=== PATIENT | female | born 1975 | race Caucasian/White ===

== ENCOUNTER 2017-09-16 21:32 | Emergency (ER) | payer SELFPAY ==
[2017-09-16 21:33] VITALS: BP 143/92; PULSE 97; RESP 20; TEMP 36.1; O2SAT 100; BMI 40.0
--- NOTE | 2017-09-16 21:57 | ED.VISSUMM ---
- ER Visit Summary Date of Service: 09/16/17 Chief Complaint: Back pain History of Present Illness: The patient is a 42 F past medical history of hypertension and fibromyalgia. Patient states that she has had back pain along her spine and musculature for the last week. Worse the last few days. No numbness or weakness in her lower extremities. No prior back surgery. Physical Examination: Well-appearing middle-age female vital signs stable afebrile she does not look septic or toxic. She is in no acute distress. HEENT exam unremarkable. Neck nontender no lymphadenopathy. Lungs clear to auscultation bilaterally. Heart regular rate and rhythm no murmur. Abdomen soft and nontender. Normal bowel sounds no peritoneal signs. No right upper or right lower quadrant tenderness. No pulsatile mass. Extremities moves all 4. Neurovascular intact. 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 Bilaterally. Dorsi plantar flexion intact bilaterally. No cauda equina or saddle anesthesia. Normal medial thigh sensation. Negative straight leg raise bilaterally. Dorsi plantar flexion intact. Back exam she has para thoracic and lumbar soft tissue tenderness consistent with myofascial spasm. There is no redness or warmth no signs of trauma. No bony deformity. Neurologic exam normal. Test Results: None Emergency Department Course and Treatment: Patient's exam and history is consistent with back spasms. She will be given 1 p.o. Valium to take at home and a prescription for 10 days. Otherwise shower warm bath. Motrin for pain and inflammation. Treatment Plan: [] Disposition: Discharge Impression: Acute back pain secondary to myofascial spasm This note was generated with [employer] dictation software. It may contain incorrect words, spelling, and punctuation that were not noted in review of the chart prior to signing ED Disposition - Plan for ED Patient: Chief Complaint: Back Referrals: Aaron Marte Jr., MD [Primary Care Provider] -
--- NOTE | 2017-09-16 22:00 | ED.DCSUM_ITS ---
- ER Visit Summary Date of Service: 09/16/17 Chief Complaint: Back pain History of Present Illness: The patient is a 42 F past medical history of hypertension and fibromyalgia. Patient states that she has had back pain along her spine and musculature for the last week. Worse the last few days. No numbness or weakness in her lower extremities. No prior back surgery. Physical Examination: Well-appearing middle-age female vital signs stable afebrile she does not look septic or toxic. She is in no acute distress. HEENT exam unremarkable. Neck nontender no lymphadenopathy. Lungs clear to auscultation bilaterally. Heart regular rate and rhythm no murmur. Abdomen soft and nontender. Normal bowel sounds no peritoneal signs. No right upper or right lower quadrant tenderness. No pulsatile mass. Extremities moves all 4. Neurovascular intact. 5 out of 5 delicatessen department manager strength. Bilaterally. Dorsi plantar flexion intact bilaterally. No cauda equina or saddle anesthesia. Normal medial thigh sensation. Negative straight leg raise bilaterally. Dorsi plantar flexion intact. Back exam she has para thoracic and lumbar soft tissue tenderness consistent with myofascial spasm. There is no redness or warmth no signs of trauma. No bony deformity. Neurologic exam normal. Test Results: None Emergency Department Course and Treatment: Patient's exam and history is consistent with back spasms. She will be given 1 p.o. Valium to take at home and a prescription for 10 days. Otherwise shower warm bath. Motrin for pain and inflammation. Treatment Plan: [] Disposition: Discharge Impression: Acute back pain secondary to myofascial spasm This note was generated with [employer] dictation software. It may contain incorrect words, spelling, and punctuation that were not noted in review of the chart prior to signing ED Disposition - Plan for ED Patient: Chief Complaint: Back Referrals: Aaron Marte Jr., MD [Primary Care Provider] -
--- NOTE | 2017-09-16 22:00 | ED.DEP ---
ED Disposition - Plan for ED Patient: Disposition: Home or Assisted Living Chief Complaint: Back Instructions: ED Spasm Back No Trauma Prescriptions: Diazepam [Valium] 10 mg PO TID PRN PRN #15 tab PRN Reason: Pain Referrals: Aaron Marte Jr., MD [Primary Care Provider] - 1 Week if not improving Additional Instructions: Motrin for pain and inflammation. Volume for back muscle spasms. Do not drive or drink while using the Valium. Hot shower, warm bath and massage to relax the muscles in your back. Call follow-up your doctor if not improving.
[2017-09-16 22:17] VITALS: BP 136/109; PULSE 76; RESP 19
[2017-09-16] MEDS: diazePAM 5 MG Tablet 10 MG PO (22:24)
== END 2017-09-16 22:25 | disposition home or self-care (01) ==
PROVIDERS: Emergency Provider Emergency Medicine; Family Provider Internal Medicine; PCP Internal Medicine
DX: M62.830 Muscle spasm of back (principal); I10 Essential (primary) hypertension; M79.7 Fibromyalgia; Z79.899 Other long term (current) drug therapy; Z72.0 Tobacco use
CPT/HCPCS: 99284

== ENCOUNTER → 2021-03-18 16:33 | Outpatient (CLI) | payer MEDICAID, SELFPAY ==
--- NOTE | 2021-03-18 16:40 | RAD_ITS ---
STUDY: X-RAY CHEST REASON FOR EXAM: Female, 45 years old. COUGH, SOB TECHNIQUE: Frontal and lateral views of the chest COMPARISON: None. FINDINGS: The lungs are clear and expanded. There is no demonstrated pleural abnormality. Normal size heart. Normal mediastinum and conchis. Normal visualized pulmonary arteries. Normal visualized aortic arch and descending thoracic aorta. Normal visualized thoracic spine. Normal visualized ribs, clavicles, and shoulders. There is no demonstrated abnormality of the visualized soft tissue structures of the upper abdomen. RAD/Chest PA and Lateral IMPRESSION: Normal x-ray examination of the chest. Electronically Signed: Pavel Collier MD at 17:03 EST Tel , Service support ,
[2021-03-18 17:11] LABS: Hematocrit 42.9 % (37-47); Hemoglobin 14.7 g/dL (12.0-15.0); Mean Corp Hgb Conc 34.3 g/dL (32-36); Mean Corpuscular Hgb 33.1 pg (27.0-32.0); Mean Corpuscular Volume 96.6 fL (81-99); Mean Platelet Vol. 10.6 fl (6.2-12.0); Platelet Count 206 K/mm3 (150-450); RBC Distribution Width CV 13.2 % (11.6-14.6); RBC Distribution Width SD 47.3 fl (35.1-43.9); Red Blood Count 4.44 M/mm3 (4.2-5.4); White Blood Count 5.4 K/mm3 (4.4-11.0)
[2021-03-18 17:35] LABS: D-Dimer Quantitative (DVT/PE) 0.33 FEU/ug/m (0.27-0.49)
[2021-03-18 18:13] LABS: ALB/GLOB Ratio 0.8 RATIO (0.9-2.4); AST(SGOT) 15 U/L (15-37); Alanine Aminotransfer ALT/SGPT 22 U/L (13-56); Albumin, Serum 3.3 g/dL (3.2-5.0); Alkaline Phosphatase 81 U/L (45-117); Anion Gap 3 (5-15); BUN 10 mg/dL (7-18); BUN/Creat Ratio 11.2 RATIO (10-20); CRP 4.37 mg/L (0.0-3.0); Calcium,Total 8.6 mg/dL (8.5-10.1); Chloride 116 mmol/L (98-107); Creatinine, Serum 0.89 mg/dL (0.55-1.02); EST Glomerular Filtration Rate 73 mL/min (>60); Est Glom Filt Rate - Afr Amer 89 mL/min (>60); Globulin 3.9 g/dL (2.2-4.2); Glucose 103 mg/dL (74-106); Potassium 3.4 mmol/L (3.5-5.1); Protein, Total 7.2 g/dL (6.4-8.2); Sodium Level 142 mmol/L (136-145)
== END ==
PROVIDERS: PCP Nurse Practitioner Family; Visit Provider Nurse Practitioner Family
DX: U07.1 COVID-19 (principal); R05.9 Cough, unspecified; R06.02 Shortness of breath
CPT/HCPCS: 36415; 71046; 80053; 85027; 85379; 86140

== ENCOUNTER 2021-08-19 18:15 | Observation (INO) | payer MEDICAID, SELFPAY ==
[2021-08-19] VITALS (8 sets, daily range): BP systolic 111–136; BP diastolic 77–92; PULSE 65–81; RESP 16–18; TEMP 36.3–36.9; O2SAT 98–100; BMI 33.0; BMI 32.3
--- NOTE | 2021-08-19 18:19 | EKG12_ITS ---
Test Reason : CP Blood Pressure : / mmHG Vent. Rate : 078 BPM Atrial Rate : 078 BPM P-R Int : 160 ms QRS Dur : 088 ms QT Int : 386 ms P-R-T Axes : 057 026 018 degrees QTc Int : 440 ms Normal sinus rhythm Nonspecific ST abnormality Abnormal ECG Confirmed by VICKY DELGADILLO, GERTRUDE ([id number]), editor managing newspaper DEBORAH MEMBRENO ([id number]) on 08/21/2021 12:58:40 PM Referred By: PL Confirmed By:GERTRUDE PERRY MD
--- NOTE | 2021-08-19 18:32 | EKG12_ITS ---
Test Reason : CP ADMISSION Blood Pressure : / mmHG Vent. Rate : 066 BPM Atrial Rate : 066 BPM P-R Int : 160 ms QRS Dur : 094 ms QT Int : 410 ms P-R-T Axes : 050 013 020 degrees QTc Int : 429 ms Normal sinus rhythm Low voltage QRS Borderline ECG When compared with ECG of 19-AUG-2021 18:19, MANUAL COMPARISON REQUIRED, DATA IS UNCONFIRMED Confirmed by CHRISTIANE DELGADILLO, SHERIF ([id number]), acquisition editor DEBORAH MEMBRENO ([id number]) on 08/22/2021 1:14:47 PM Referred By: ARIELA Confirmed By:COLLEEN GRANDE MD
[2021-08-19 18:42] LABS: Absolute Lymphocyte Count 3.26 X10^3/uL (0.83-4.51); Basophil# 0.06 X10^3/uL; Basophil% 0.7 % (0-1); Eosinophil# 0.14 X10^3/uL; Eosinophils% 1.7 % (0-5); Hematocrit 42.4 % (37-47); Hemoglobin 14.2 g/dL (12.0-15.0); Lymphocyte # 3.26 X10^3/ul (0.83-4.51); Lymphocyte % 40.6 % (19-41); Mean Corp Hgb Conc 33.5 g/dL (32-36); Mean Corpuscular Hgb 33.5 pg (27.0-32.0); Mean Platelet Vol. 10.6 fl (6.2-12.0); Monocyte# 0.55 X10^3/uL; Monocyte% 6.9 % (0-10); NRBC Flagged by Analyzer 0 % (0-5); Neutrophil # 3.97 X10^3/uL (2.7-7.7); Neutrophil % 49.6 % (47-70); Platelet Count 241 K/mm3 (150-450); RBC Distribution Width CV 13.8 % (11.6-14.6); RBC Distribution Width SD 50.2 fl (35.1-43.9); Red Blood Count 4.24 M/mm3 (4.2-5.4)
[2021-08-19] MEDS: Aspirin 81 MG TAB.CHEW 324 MG PO (18:43)
--- NOTE | 2021-08-19 18:49 | ED.VIS.CHEST ---
HPI History of Present Illness Chief Complaint: Chest Pain Informant: patient Narrative Narrative: Patient presents with episode of chest pain today. Patient had just smoked a cigarette and put it out. She got a sense of pressure and squeezing across her chest. She felt radiation to the left shoulder arm left side of the neck and left jaw. She felt short of breath. She did have some mild clammy diaphoresis. She felt lightheaded. It lasted about 2 or 3 minutes. But it has recurred several times since then. They were not as bad as the initial episode. She has never had anything like this before. Patient does have some mild blood pressure and is on metoprolol but this is also for history of high heart rate. She does have some obesity. She is not diabetic. No known high cholesterol. She does not know her dad's family history. No heart disease in mother father brother sister but there is extensive heart disease throughout her extended family including people quite young. She has a cousin who is slightly younger than her that has had multiple stents. Patient has no recent travel surgery immobilization personal or family history of DVT or PE. She has not been coughing. She felt perfectly normal until this happened. She is currently not having symptoms and was not having symptoms when her EKG was done. Nothing specifically makes the symptoms come or go. [facility] Medical History Anxiety Thyroid activity decreased Home Medications metoprolol tartrate 25 mg PO DAILY 09/16/17 [History Last Taken Unknown] promethazine 25 mg PO Q6H PRN PRN 08/19/21 [History Last Taken Unknown] quetiapine 50 mg PO QHS 08/19/21 [History Last Taken Unknown] topiramate 100 mg PO BID 08/19/21 [History Last Taken Unknown] Allergy/AdvReac Type Severity Reaction Status Date / Time No Known Allergies Allergy Verified 08/19/21 18:18 Social History Smoking Status: Current every day smoker tobacco type: cigarettes ROS ROS ED Constitutional Constitutional ED: Denies chills or fever(s) Eyes Eyes: Denies change in vision ENT ENT ED: Denies rhinorrhea or sore throat Cardiovascular Cardiovascular: Reports as per HPI and chest pain Respiratory/Chest Respiratory/Chest: Reports dyspnea Gastrointestinal Gastrointestinal: Reports nausea; Denies vomiting Genitourinary Genitourinary ED: Denies dysuria Musculoskeletal Musculoskeletal: Reports neck pain and other Details: Radiation of pain to the left shoulder and upper arm. Integumentary Denies rash Neurologic Neurologic: Denies headache(s), paresthesias or weakness Psychiatric Psychiatric: Denies anxiety or depression Endocrine Endocrinology: Denies polydipsia or polyuria Hematologic/Lymphatic Hematologic/Lymphatic: Denies easy bleeding or easy bruising Allergic/Immunologic Allergic/Immunologic ED: Denies urticaria EXAM Physical Exam Const Vital Signs: 08/19/21 18:16 08/19/21 18:43 08/19/21 19:28 Temperature 97.4 F L Temperature Source Temporal Pulse Rate 80 70 Respiratory Rate 16 18 Blood Pressure 136/92 H 111/80 Blood Pressure Mean 106 90 Pulse Ox 100 99 Oxygen Delivery Method Room Air Room Air Room Air 08/19/21 20:24 Temperature Temperature Source Pulse Rate 81 Respiratory Rate 16 Blood Pressure 113/84 H Blood Pressure Mean 93 Pulse Ox 100 Oxygen Delivery Method Room Air Positive well nourished, well developed and obese General Appearance ED: well developed and NAD Nutritional Appearance: obese HEENT Reports moist mucous membranes; Denies dry mucous membranes Mouth ED: No dry mucous membranes Mouth: No dry mucous membranes Eyes General Eye ED: Negative for pale conjunctiva or scleral icterus Neck no JVD Chest Wall inspection of chest normal Resp normal respiratory effort and clear to auscultation bilaterally Resp Narrative: No pain with deep breath. Effort and Inspection: respiratory distress Cardio regular rate, regular rhythm and no murmurs Back/Spine no CVA tenderness Extremity normal to inspection General Extremety ED: Negative for edema, pulses abnormal or tenderness General Extremity: Negative for edema or pulses abnormal Neuro Sensorium / Orientation: awake and alert Psych mental status grossly normal Skin no rashes or lesions noted Heart Score History: Highly Suspicious ECG: Nonspecific Repolarization Age: </= 45 years Risk Factors: >/= 3 Risk Factors or History of CAD Troponin: </= Normal Limit Score: 5 MDM MDM MDM Narrative Medical decision making narrative: Blood work showed normal CBC. Electrolytes were normal other than minimal elevation of chloride. Troponin was negative. Chest x-ray showed no acute process. Patient is a heart score of 5. With her very good story and high heart score we did recommend coming in the hospital. I discussed this with her and the hospitalist. Lab Data Labs: Laboratory Results - last 24 hr 08/19/21 08/19/21 08/19/21 18:17 18:17 18:17 WBC 8.0 RBC 4.24 Hgb 14.2 Hct 42.4 MCV 100.0 H MCH 33.5 H MCHC 33.5 RDW Std Deviation 50.2 H RDW Coeff of Teresa 13.8 Plt Count 241 MPV 10.6 Immature Gran % (Auto) 0.500 Neut % (Auto) 49.6 Lymph % (Auto) 40.6 Motley % (Auto) 6.9 Eos % (Auto) 1.7 Baso % (Auto) 0.7 Absolute Neuts (auto) 4.0 Absolute Lymphs (auto) 3.26 Nucleated RBC % 0 Sodium 142 Potassium 3.5 Chloride 113 H Carbon Dioxide 23.0 Anion Gap 6 BUN 11 Creatinine 0.88 Estim Creat Clear Calc 82.30 Est GFR (MDRD) Af Amer 90 Est GFR (MDRD) Non-Af 74 BUN/Creatinine Ratio 12.5 Glucose 85 Calcium 8.5 Troponin I High Sens < 3 L Radiography Diagnostic Testing: Clinical Impression(s) from Imaging Studies Chest X-Ray 08/19/21 18:50 IMPRESSION: There are no acute findings. Electronically Signed: Chris Dennison MD at 19:23 EDT Reading Location ID and State: [facility] / [place] , Service support , EKG Initial EKG: Comments: EKG done for chest pain read by me shows normal sinus rhythm with a rate of 78. No ventricular ectopy. There are some mild nonspecific ST and T wave changes but no sign of acute infarct. NV interval, QRS duration and QTc normal Discharge Plan Triage Chief Complaint: Chest Pain ED Provider: Frandy Hedrick Dx/Rx/DC Orders Clinical Impression: Chest pain Primary Care Provider: Aaron Brand [employer]IGINAL LIAISON OFFICER Disposition Disposition: Acute Care [facility]
--- NOTE | 2021-08-19 18:50 | RAD_ITS ---
STUDY: X-RAY CHEST REASON FOR EXAM: Female, 46 years old. CHEST PAIN chest pain TECHNIQUE: XR Chest 1 View COMPARISON: 03.18.21 FINDINGS: There is no demonstrated pleural abnormality. Normal size heart. Normal mediastinum and conchis. Normal visualized pulmonary arteries. Normal visualized aortic arch and descending thoracic aorta. Normal visualized thoracic spine. Normal visualized ribs, clavicles, and shoulders. There is no demonstrated abnormality of the visualized soft tissue structures of the upper abdomen. RAD/Chest 1 View (Portable) IMPRESSION: There are no acute findings. Electronically Signed: Chris Dennison MD at 19:23 EDT ,
[2021-08-19 18:55] LABS: Anion Gap 6 (5-15); BUN 11 mg/dL (7-18); BUN/Creat Ratio 12.5 RATIO (10-20); Calcium,Total 8.5 mg/dL (8.5-10.1); Chloride 113 mmol/L (98-107); Creatinine, Serum 0.88 mg/dL (0.55-1.02); EST Glomerular Filtration Rate 74 mL/min (>60); Est Glom Filt Rate - Afr Amer 90 mL/min (>60); Glucose 85 mg/dL (74-106); Potassium 3.5 mmol/L (3.5-5.1); Sodium Level 142 mmol/L (136-145)
[2021-08-19 19:24] LABS: Troponin-I HS (w/2H Reflex) < 3 pg/mL (3.0-54.0)
--- NOTE | 2021-08-19 20:44 | EKG12_ITS ---
Test Reason : CP Blood Pressure : / mmHG Vent. Rate : 073 BPM Atrial Rate : 073 BPM P-R Int : 164 ms QRS Dur : 094 ms QT Int : 402 ms P-R-T Axes : 047 -01 005 degrees QTc Int : 442 ms Normal sinus rhythm Low voltage QRS Borderline ECG Confirmed by VICKY DELGADILLO, GERTRUDE ([id number]), news video editor DEBORAH MEMBRENO ([id number]) on 08/21/2021 12:55:40 PM Referred By: PL Confirmed By:GERTRUDE PERRY MD
--- NOTE | 2021-08-19 20:45 | PCM.HP.STD ---
[facility] - General General Date of Admission: 08/19/21 HPI Narrative PRINCESS GONZALES, is a 46 F with a significant history of tobacco abuse; tachycardia on metoprolol; migraine headache, fibromyalgia on topiramate and bipolar disorder on quetiapine who presents to the emergency department with 1 hour history of chest pain. She described the chest pain as tightness. She denies any aggravating or ameliorating factors to the chest pain. The chest pain is episodic. The first episode of chest pain was worse on the second. Thereafter the intensity of the chest pain has been stable. The chest pain is substernal, and it radiates to her left chest to her left arm, to her left jaw and to below her left neck. The chest pain started while she was smoking. Associated with symptoms is presyncope; diaphoresis; clamminess and nausea. [facility] Medical History Anxiety Thyroid activity decreased Home Medications metoprolol tartrate 25 mg PO DAILY 09/16/17 [History Last Taken Unknown] promethazine 25 mg PO Q6H PRN PRN 08/19/21 [History Last Taken Unknown] quetiapine 50 mg PO QHS 08/19/21 [History Last Taken Unknown] topiramate 100 mg PO BID 08/19/21 [History Last Taken Unknown] Allergy/AdvReac Type Severity Reaction Status Date / Time No Known Allergies Allergy Verified 08/19/21 18:18 Family History Other Diabetes Heart disease Hypertension Surgical History H/O arthroscopic knee surgery H/O dilation and curettage H/O: hysterectomy Social History Smoking Status: Current every day smoker tobacco type: cigarettes ROS ROS Narrative Constitutional: Denies fever, chills, fatigue, anorexia and change in weight Eyes: Denies blurry vision, change in eye color, change in vision, discharge from eye(s), double vision, erythema, eye pain, loss of vision or other HEENT: Denies abnormal hearing, dysphagia, ear pain, epistaxis, headache(s), hearing loss, nasal congestion, nasal discharge, post nasal drip, sinus pressure, sore throat or other Cardiovascular: Reports chest pain. Denies palpitations. Respiratory/Chest: Reports shortness of breath. Denies cough, excessive phlegm production. Gastrointestinal: Reports nausea. Denies abdominal pain, coffee ground emesis, constipation, diarrhea, dyspepsia, hematemesis, hematochezia, loose stools, melena,, vomiting or other Genitourinary: Denies burning urination, difficulty urinating, dysuria, hematuria, nocturia, urinary frequency, urinary hesitancy, urinary incontinence, urinary urgency or other Musculoskeletal: Denies arthralgias, back pain, joint pain, joint stiffness, joint swelling, myalgias, neck pain or other Neurologic: Denies abnormal gait, abnormal speech, confusion, disequilibrium, dizziness, focal weakness, numbness, paresthesias, seizure-like activity, seizures, tingling, tremor(s) or other Psychiatric: Denies anxiety, depression, homicidal ideation, suicidal ideation or other Endocrinology: Denies change in body appearance, cold intolerance, excessive sweating, heat intolerance, polydipsia, polyuria or other. Hematologic/Lymphatic: Denies anemia, easy bleeding, easy bruising, lymphadenopathy or other Integumentary: Denies rashes Allergic/Immunologic: Denies rhinitis, hives, eczema, or other Vital Signs Vital Signs Vital Signs: 08/19/21 18:16 08/19/21 18:43 08/19/21 19:28 Temperature 97.4 F L Temperature Source Temporal Pulse Rate 80 70 Respiratory Rate 16 18 Blood Pressure 136/92 H 111/80 Blood Pressure Mean 106 90 Pulse Ox 100 99 Oxygen Delivery Method Room Air Room Air Room Air 08/19/21 20:24 Temperature Temperature Source Pulse Rate 81 Respiratory Rate 16 Blood Pressure 113/84 H Blood Pressure Mean 93 Pulse Ox 100 Oxygen Delivery Method Room Air Weight Weight: 98.5 kg Body Mass Index (BMI) 33.0 Physical Exam Narrative Physical exam: General: Well-nourished, well-developed. Head: Normocephalic, atraumatic, no tenderness Eyes: Vision is grossly intact. EOMI ENT, no trauma, moist mucous membranes, no rhinorrhea Neck: Nontender, full range of motion, no spinal tenderness, deformities, step-off CVS: Regular rate and rhythm. S1-S2 present. No murmur, gallop or rub. Respiratory : clear to auscultation bilaterally, chest wall nontender, no wheezing Abdomen: Soft, nontender, nondistended, normal bowel sounds, no masses : Deferred Back: Nontender, no CVA tenderness, no midline spinal tenderness, deformities, step-offs Extremities: Nontender full range of motion, no trauma Skin: Normal color, no trauma, abrasions Neuro: Alert, oriented, cranial nerves II through XII grossly intact. Psychiatry: Normal mood. Normal affect. Not depressed. Not anxious. Results Lab / Micro Data Result Diagrams: 08/19/21 18:17 08/19/21 18:17 Labs: Laboratory Results - last 24 hr 08/19/21 18:17: WBC 8.0, RBC 4.24, Hgb 14.2, Hct 42.4, MCV 100.0 H, MCH 33.5 H, MCHC 33.5, RDW Std Deviation 50.2 H, RDW Coeff of Teresa 13.8, Plt Count 241, MPV 10.6, Immature Gran % (Auto) 0.500, Neut % (Auto) 49.6, Lymph % (Auto) 40.6, Hubbard % (Auto) 6.9, Eos % (Auto) 1.7, Baso % (Auto) 0.7, Absolute Neuts (auto) 4.0, Absolute Lymphs (auto) 3.26, Nucleated RBC % 0 08/19/21 18:17: Sodium 142, Potassium 3.5, Chloride 113 H, Carbon Dioxide 23.0, Anion Gap 6, BUN 11, Creatinine 0.88, Estim Creat Clear Calc 82.30, Est GFR (MDRD) Af Amer 90, Est GFR (MDRD) Non-Af 74, BUN/Creatinine Ratio 12.5, Glucose 85, Calcium 8.5 08/19/21 18:17: Troponin I High Sens < 3 L Radiology Impression Chest X-Ray 08/19/21 18:50 IMPRESSION: There are no acute findings. Electronically Signed: Chris Dennison MD at 19:23 EDT Reading Location ID and State: [facility] / [place] , Service support , Assessment & Plan Assessment/Plan (1) Chest pain: QUALIFIERS: Chest pain type: unspecified Qualified Code(s): R07.9 - Chest pain, unspecified PLAN: Chest Pain Place on a monitored bed at PCU Actual CXR image was independently visualized. No acute cardiopulmonary process was noted. Actual EKG tracing was independently visualized. EKG tracing showed no ST or T-wave abnormality. CBC showed normal white count; and macrocytosis. BMP showed hyperchloremic that is chronic compared to previous. Aspirin 325 mg p.o. ordered in the emergency department. ASA 81 mg p.o. daily ordered SL NTG 0.4 mg prn as needed for chest pain ordered Morphine as needed for pain ordered We will check lipid panel and CMP. Serial cardiac enzymes ordered Stat EKG as needed for chest pain Treadmill Stress test in the AM if the cardiac enzymes are negative Tobacco abuse Counseled DVT prophylaxis ordered: SCD while planning for cardiac work up for chest pain Charges/Coding Visit Charges OBSV E&M: [id number] Initial observation care L2
[2021-08-19 21:10] LABS: Reflex Troponin-HS? (from REC) Y
[2021-08-19 21:12] LABS: Troponin-I HS < 3 pg/mL (3.0-54.0)
[2021-08-20] VITALS (8 sets, daily range): BP systolic 101–116; BP diastolic 64–74; PULSE 64–70; RESP 12–18; TEMP 36.4–36.7; O2SAT 96–100
[2021-08-20 00:49] LABS: Troponin-I HS 4 pg/mL (3.0-54.0)
[2021-08-20 04:34] LABS: Absolute Lymphocyte Count 2.91 X10^3/uL (0.83-4.51); Absolute Neutrophil Count 2.4 X10^3/uL (2.0-7.7); Basophil# 0.06 X10^3/uL; Eosinophil# 0.17 X10^3/uL; Eosinophils% 2.8 % (0-5); Hematocrit 36.1 % (37-47); Hemoglobin 12.5 g/dL (12.0-15.0); Lymphocyte # 2.91 X10^3/ul (0.83-4.51); Lymphocyte % 48.5 % (19-41); Mean Corp Hgb Conc 34.6 g/dL (32-36); Mean Corpuscular Hgb 33.9 pg (27.0-32.0); Mean Corpuscular Volume 97.8 fL (81-99); Mean Platelet Vol. 10.3 fl (6.2-12.0); Monocyte# 0.43 X10^3/uL; Monocyte% 7.2 % (0-10); NRBC Flagged by Analyzer 0 % (0-5); Neutrophil # 2.42 X10^3/uL (2.7-7.7); Neutrophil % 40.3 % (47-70); POSITIVE MORPHOLOGY YES; Platelet Count 197 K/mm3 (150-450); RBC Distribution Width CV 13.7 % (11.6-14.6); Red Blood Count 3.69 M/mm3 (4.2-5.4)
[2021-08-20 04:35] LABS: Differential Indicated SCAN CRITERIA MET
[2021-08-20 04:55] LABS: ALB/GLOB Ratio 1.1 RATIO (0.9-2.4); AST(SGOT) 6 U/L (15-37); Alanine Aminotransfer ALT/SGPT 14 U/L (13-56); Alkaline Phosphatase 61 U/L (45-117); Anion Gap 4 (5-15); BUN 11 mg/dL (7-18); BUN/Creat Ratio 16.2 RATIO (10-20); Calcium,Total 7.5 mg/dL (8.5-10.1); Chloride 117 mmol/L (98-107); Cholesterol 167 mg/dL (200); Creatinine, Serum 0.68 mg/dL (0.55-1.02); EST Glomerular Filtration Rate 100 mL/min (>60); Est Glom Filt Rate - Afr Amer 121 mL/min (>60); Globulin 2.7 g/dL (2.2-4.2); Glucose 90 mg/dL (74-106); High Density Lipoprotein 34 mg/dL; Potassium 3.7 mmol/L (3.5-5.1); Protein, Total 5.7 g/dL (6.4-8.2); Sodium Level 142 mmol/L (136-145); Triglycerides 127 mg/dL; Very Low Density Lipoprotein 25 mg/dL (5-40)
[2021-08-20 05:24] LABS: Atypical Lymphocyte RARE %; Differential Comment SCANNED
--- NOTE | 2021-08-20 05:38 | EKG12_ITS ---
Test Reason : AM EKG Blood Pressure : / mmHG Vent. Rate : 059 BPM Atrial Rate : 059 BPM P-R Int : 162 ms QRS Dur : 090 ms QT Int : 438 ms P-R-T Axes : 062 012 019 degrees QTc Int : 433 ms Sinus bradycardia Low voltage QRS Borderline ECG When compared with ECG of 19-AUG-2021 22:09, MANUAL COMPARISON REQUIRED, DATA IS UNCONFIRMED Confirmed by CHRISTIANE DELGADILLO, SHERIF ([id number]), order editor DEBORAH MEMBRENO ([id number]) on 08/22/2021 1:15:47 PM Referred By: ARIELA Confirmed By:COLLEEN GRANDE MD
[2021-08-20] MEDS: Aspirin 81 MG TAB.CHEW PO (06:49)
[2021-08-20] MEDS: 0.9% Saline Lock 10 ML Syringe IV (06:50)
[2021-08-20] MEDS: Metoprolol Tartrate 25 MG Tablet PO (10:17)
[2021-08-20] MEDS: Topiramate 100 MG Tablet PO (10:18)
--- NOTE | 2021-08-20 10:32 | STRESSREP ---
Stress Test Report Date: 08-20-2021 Procedure: Exercise tolerance test/imaging study Indications: Chest pain Consent: Per the patient Procedure: The patient exercised on a Ankit protocol for 8 minutes completing Stage II and 2 minutes of Stage III achieving a peak heart rate of 166 bpm (94% predicted maximal heart rate) with a peak blood pressure 150/74 mmHg and a peak MET capacity of 10 METs. The baseline ECG demonstrated normal sinus rhythm. The peak exercise ECG demonstrated no obvious ECG changes. There were no cardiac dysrhythmias pretest, during exercise, or recovery. The functional capacity was considered good. There was no complaint of chest discomfort during exercise or recovery. The examination was discontinued secondary to dyspnea. Impression: 1. Technically adequate (percent predicted maximal heart rate greater than 85%) exercise tolerance test 2. Peak exercise ECG with no obvious ECG changes 3. There were no cardiac dysrhythmias pretest, during exercise, or recovery 4. Nuclear images pending Myocardial perfusion imaging study: Technique: The patient was injected with 12.0 mCi of technetium 99m Cardiolite and subsequently rest SPECT Cardiolite nuclear imaging was obtained in the horizontal long, vertical long, and short axis views. The patient exercised on a Ankit protocol for 8 minutes completing Stage II and 2 minutes of Stage III achieving a peak heart rate of 166 bpm (94% predicted maximal heart rate) with a peak blood pressure 150/74 mmHg and a peak MET capacity of 10 METs. The patient was injected with 34.9 mCi of technetium 99m Cardiolite and subsequently stress SPECT Cardiolite nuclear imaging was obtained in the horizontal long, vertical long, and short axis views. A gated Cardiolite study at peak stress was obtained. Interpretation: Rest and stress SPECT Cardiolite nuclear imaging status post realignment, normalization, and attenuation correction, demonstrates the appearance of relative uniform tracer uptake and myocardial perfusion appearing within normal limits. There is end systolic thickening and brightening. The gated Cardiolite study demonstrates myocardial thickening and inward wall motion. The reported LVEF is 76%. Impression: 1. Rest and stress SPECT Cardiolite nuclear imaging demonstrate relative uniform tracer uptake and myocardial perfusion appearing within normal limits. 2. The gated Cardiolite study reports an LVEF of 76%. This note was generated with [employer] software. It may contain incorrect words, spelling, and punctuation that were not noted in checking the note before signing.
--- NOTE | 2021-08-20 11:23 | DCINST_ITS ---
Discharge Instructions Diet Discharge Diet: No restrictions Activity Discharge Activity: Return to Normal Activity Follow Up Care Test Results: Test results from this visit will be discussed in further detail at your follow-up appointment, if applicable. Discharge Plan Admission Admit Date/Time: 08/19/21 20:40 Primary Reason for Your Visit: chest pain Attending Provider: Jeancarlos An Primary Care Provider: Aaron Brand NP Discharge Orders/Prescriptions Prescriptions: Continued metoprolol tartrate 25 MG tablet 25 mg PO DAILY RF: 0 promethazine 25 mg tablet 25 mg PO Q6H PRN PRN (Reason: Nausea) RF: 0 topiramate 100 mg tablet 100 mg PO BID RF: 0 quetiapine 50 mg tablet 50 mg PO QHS RF: 0 Referrals / Follow Up: Aaron Brand NP, ASSISTANT FAMILY TEACHER-C [Primary Care Provider] - Within 2 Weeks Disposition Disposition (needs filled in before D/C Order can be placed): Home, Self Care
--- NOTE | 2021-08-20 11:26 | PCM.DC.SUM ---
Providers Date of Admission: 08/19/21 Primary Care Physician: Aaron Brand, ORACLE EBS CONSULTANT-C Reason For Visit: CHEST PAIN Diagnosis Discharge Diagnosis (1) Chest pain: Status: Acute Code(s): R07.9 - Chest pain, unspecified Qualifiers: Chest pain type: unspecified Qualified Code(s): R07.9 - Chest pain, unspecified Medications at Discharge Home Medications metoprolol tartrate 25 mg PO DAILY 09/16/17 promethazine 25 mg PO Q6H PRN PRN 08/19/21 quetiapine 50 mg PO QHS 08/19/21 topiramate 100 mg PO BID 08/19/21 Hospital Course Operations None Procedures Stress test Summary of Care Provided Hospital Course: 46-year-old female presents with chest pain. Went down her left arm. Presented to the emergency room and underwent a work-up clued EKG and troponins which were negative. Today, the patient underwent a treadmill stress test that was negative. Chest pain is noncardiac and patient will be discharged home in stable condition. Physical Exam Resp normal respiratory effort, no retractions, no use of accessory muscles and clear to auscultation bilaterally Cardio regular rate, regular rhythm, S1 normal heart sound and S2 normal heart sound GI normal to inspection, nondistended, normoactive bowel sounds, soft to palpation, non-tender and non-distended Extremity normal to inspection Weight / BMI Weight Weight: 98 kg Body Mass Index (BMI) 32.3 ABG / Lab / Microbiology Data Result Diagrams: 08/20/21 04:27 08/20/21 04:27 Laboratory: Laboratory Results - last 24 hr 08/19/21 18:17: WBC 8.0, RBC 4.24, Hgb 14.2, Hct 42.4, MCV 100.0 H, MCH 33.5 H, MCHC 33.5, RDW Std Deviation 50.2 H, RDW Coeff of Teresa 13.8, Plt Count 241, MPV 10.6, Immature Gran % (Auto) 0.500, Neut % (Auto) 49.6, Lymph % (Auto) 40.6, [place] % (Auto) 6.9, Eos % (Auto) 1.7, Baso % (Auto) 0.7, Absolute Neuts (auto) 4.0, Absolute Lymphs (auto) 3.26, Nucleated RBC % 0 08/19/21 18:17: Sodium 142, Potassium 3.5, Chloride 113 H, Carbon Dioxide 23.0, Anion Gap 6, BUN 11, Creatinine 0.88, Estim Creat Clear Calc 82.30, Est GFR (MDRD) Af Amer 90, Est GFR (MDRD) Non-Af 74, BUN/Creatinine Ratio 12.5, Glucose 85, Calcium 8.5 08/19/21 18:17: Troponin I High Sens < 3 L 08/19/21 20:49: Troponin I High Sens < 3 L 08/20/21 00:08: Troponin I High Sens 4 08/20/21 04:27: WBC 6.0, RBC 3.69 L, Hgb 12.5, Hct 36.1 L, MCV 97.8, MCH 33.9 H, MCHC 34.6, RDW Std Deviation 49.0 H, RDW Coeff of Teresa 13.7, Plt Count 197, MPV 10.3, Immature Gran % (Auto) 0.200, Neut % (Auto) 40.3 L, Lymph % (Auto) 48.5 H, [place] % (Auto) 7.2, Eos % (Auto) 2.8, Baso % (Auto) 1.0, Absolute Neuts (auto) 2.4, Absolute Lymphs (auto) 2.91, Nucleated RBC % 0, Differential Comment SCANNED, Atypical Lymphocytes RARE 08/20/21 04:27: Sodium 142, Potassium 3.7, Chloride 117 H, Carbon Dioxide 21.0, Anion Gap 4 L, BUN 11, Creatinine 0.68, Estim Creat Clear Calc 106.50, Est GFR (MDRD) Af Amer 121, Est GFR (MDRD) Non-Af 100, BUN/Creatinine Ratio 16.2, Glucose 90, Calcium 7.5 L, Total Bilirubin 0.20, AST 6 L, ALT 14, Alkaline Phosphatase 61, Total Protein 5.7 L, Albumin 3.0 L, Globulin 2.7, Albumin/Globulin Ratio 1.1, Triglycerides 127, Cholesterol 167, LDL Cholesterol 108, VLDL Cholesterol 25, HDL Cholesterol 34 L Radiography Diagnostic Testing: Radiology Impression Chest X-Ray 08/19/21 18:50 IMPRESSION: There are no acute findings. Electronically Signed: Chris Dennison MD at 19:23 EDT , D/C Instructions Discharge Diet: No restrictions Meaningful Use Info Meaningful Use Diagnoses (Choose all that apply): None applicable Discharge Plan Admission Admit Date/Time: 08/19/21 20:40 Primary Reason for Your Visit: chest pain Attending Provider: Jeancarlos An Primary Care Provider: Aaron Brand NP Discharge Orders/Prescriptions Prescriptions: Continued metoprolol tartrate 25 MG tablet 25 mg PO DAILY RF: 0 promethazine 25 mg tablet 25 mg PO Q6H PRN PRN (Reason: Nausea) RF: 0 topiramate 100 mg tablet 100 mg PO BID RF: 0 quetiapine 50 mg tablet 50 mg PO QHS RF: 0 Referrals / Follow Up: Aaron Brand NP, [employer]ACLE EBS CONSULTANT-C [Primary Care Provider] - Within 2 Weeks Disposition Disposition (needs filled in before D/C Order can be placed): Home, Self Care Charges/Coding Visit Charges OBSV E&M: 47837 Observation care discharge
--- NOTE | 2021-08-20 12:13 | PHA.DC.MR ---
Pharmacy Service has performed discharge medication reconciliation for this patient. The patient's discharge medication list was reviewed for discrepancies and discrepancies were resolved. Home Medications metoprolol tartrate 25 mg PO DAILY 09/16/17 promethazine 25 mg PO Q6H PRN PRN 08/19/21 quetiapine 50 mg PO QHS 08/19/21 topiramate 100 mg PO BID 08/19/21
--- NOTE | 2021-08-20 17:04 | NURSING ---
All documentation and medication administration performed by SN Shani done under the supervision of this RN.
== END 2021-08-20 11:26 | disposition home or self-care (01) ==
LOC: ED 18:37 → PCU 20:51
PROVIDERS: Admitting Provider Hospitalist; Emergency Provider Emergency Medicine; PCP Nurse Practitioner Family
DX: R07.89 Other chest pain (principal); F17.210 Nicotine dependence, cigarettes, uncomplicated; R11.0 Nausea; E66.9 Obesity, unspecified; Z68.33 Body mass index [BMI] 33.0-33.9, adult; F41.9 Anxiety disorder, unspecified; Z79.899 Other long term (current) drug therapy; R68.84 Jaw pain; M54.2 Cervicalgia; R06.02 Shortness of breath; R42 Dizziness and giddiness; M79.7 Fibromyalgia
CPT/HCPCS: 36415; 71045; 78452; 80048; 80053; 80061; 84484; 85025; 93005; 93017; 97802; 99218; 99285; 99406; A9500; A4216; G0378

== ENCOUNTER 2021-10-20 09:12 | Emergency (ER) | payer MEDICAID, SELFPAY ==
[2021-10-20 09:12] VITALS: BP 142/92; PULSE 83; RESP 16; TEMP 36.3; O2SAT 100; BMI 31.1
--- NOTE | 2021-10-20 09:31 | EDS_ITS ---
HPI History of Present Illness Chief Complaint: Other, Pain/Inj Detail of Chief Complaint: Neck pain Informant: patient Onset/Context/Timing Onset: Weeks Current Severity: Moderate Maximum Severity: Severe Narrative Narrative: Patient presents with neck pain. She is been having problems for the last month. She was seen by both urgent care as well as her PCP. She has been on burst of meloxicam, muscle relaxers, steroids. Patient states pain seem to be worse today and is radiating down her right arm. She was told by urgent care that if she was not better she should come to the emergency room. Her PCP is out of town this week. There is been no new injury. She does report a neck injury when she was in her 20s. [facility] Medical History Anxiety Thyroid activity decreased Home Medications metoprolol tartrate 25 mg PO DAILY 09/16/17 [History Last Taken Unknown] promethazine 25 mg PO Q6H PRN PRN 08/19/21 [History Last Taken Unknown] quetiapine 50 mg PO QHS 08/19/21 [History Last Taken Unknown] topiramate 100 mg PO BID 08/19/21 [History Last Taken Unknown] cyclobenzaprine 10 mg PO BID PRN #10 tab 10/20/21 [Rx Last Taken Unknown] hydrocodone-acetaminophen 1 tab PO Q6H PRN 3 Days #10 tab 10/20/21 [Rx Last Taken Unknown] naproxen [Naprosyn] 500 mg PO BID PRN #20 tab 10/20/21 [Rx Last Taken Unknown] prednisone See Taper PO DAILY #63 tab 10/20/21 [Rx Last Taken Unknown] Allergy/AdvReac Type Severity Reaction Status Date / Time No Known Allergies Allergy Verified 10/20/21 09:18 Family History Other Diabetes Heart disease Hypertension Surgical History H/O arthroscopic knee surgery H/O dilation and curettage H/O: hysterectomy Social History Smoking Status: Current every day smoker tobacco type: cigarettes ROS ROS ED Constitutional Constitutional ED: Denies chills or fever(s) Eyes Eyes: Denies change in vision ENT ENT ED: Denies sore throat Cardiovascular Cardiovascular: Denies chest pain Respiratory/Chest Respiratory/Chest: Denies cough or dyspnea Gastrointestinal Gastrointestinal: Denies abdominal pain, nausea or vomiting Genitourinary Genitourinary ED: Denies dysuria Musculoskeletal Musculoskeletal: Reports neck pain; Denies back pain Integumentary Denies rash Neurologic Neurologic: Denies headache(s) or weakness Allergic/Immunologic Allergic/Immunologic ED: Denies urticaria EXAM Physical Exam Const Vital Signs: 10/20/21 09:12 Temperature 97.4 F L Temperature Source Temporal Pulse Rate 83 Respiratory Rate 16 Blood Pressure 142/92 H Blood Pressure Mean 108 Pulse Ox 100 Oxygen Delivery Method Room Air Positive well nourished and well developed General Appearance ED: well developed HEENT Reports moist mucous membranes Eyes PERRL and EOMs intact bilaterally Neck supple Neck Narrative: Patient does have tenderness in the right cervical paraspinal muscles. Minimal midline tenderness. Chest Wall inspection of chest normal and palpation of chest normal Resp normal respiratory effort and clear to auscultation bilaterally Cardio regular rate and regular rhythm GI non-tender Palpation: soft Extremity normal to inspection Neuro oriented x3 Neuro Narrative: Good strength on testing throughout. Patient reports slight decrease sensation to touch in the right upper extremity. Sensorium / Orientation: alert Motor Exam: strength 5/5 throughout Psych mental status grossly normal Skin no rashes or lesions noted [facility] Treatment and Re-Evaluation Narrative: Patient was advised she likely needs an MRI for cervical radiculopathy. I am unable to order this in the emergency room. I will treat her with Naprosyn, [place], Flexeril, prednisone. She is to call her PCP for follow-up including MRI. Return instructions are given. Discharge Plan Triage Chief Complaint: Other, Pain/Inj ED Provider: Joan Lorenzo Dx/Rx/DC Orders Clinical Impression: Cervical radiculopathy Instructions: ED Radiculopathy, Cervical Prescriptions: New naproxen [Naprosyn] 500 mg tablet 500 mg PO BID PRN (Reason: pain) Qty: 20 RF: 0 cyclobenzaprine 10 mg tablet 10 mg PO BID PRN (Reason: muscle spasm) Qty: 10 RF: 0 prednisone 10 mg tablet See Taper mg PO DAILY Qty: 63 RF: 0 hydrocodone-acetaminophen 5-325 mg tablet 1 tab PO Q6H PRN (Reason: pain) 3 Days Qty: 10 RF: 0 No Action metoprolol tartrate 25 MG tablet 25 mg PO DAILY RF: 0 promethazine 25 mg tablet 25 mg PO Q6H PRN PRN (Reason: Nausea) RF: 0 topiramate 100 mg tablet 100 mg PO BID RF: 0 quetiapine 50 mg tablet 50 mg PO QHS RF: 0 Primary Care Provider: Aaron Brand NP Referrals: Aaron Brand MATERIAL ANALYST, MATERIAL ANALYST-C [Primary Care Provider] - As soon as possible Disposition Disposition: Home, Self Care
== END 2021-10-20 09:51 | disposition home or self-care (01) ==
PROVIDERS: Emergency Provider Emergency Medicine; PCP Nurse Practitioner Family; Visit Provider Emergency Medicine
DX: M54.12 Radiculopathy, cervical region (principal); F17.210 Nicotine dependence, cigarettes, uncomplicated; Z79.899 Other long term (current) drug therapy
CPT/HCPCS: 99282

== ENCOUNTER 2021-12-17 17:45 | Emergency (ER) | payer MEDICAID, SELFPAY ==
[2021-12-17 17:46] VITALS: BP 144/103; PULSE 84; RESP 12; TEMP 36.1; O2SAT 98; BMI 31.3
[2021-12-17] MEDS: Ketorolac 30 MG/ML Syringe IM (18:27)
[2021-12-17] MEDS: oxyCODONE 5 MG Tablet PO (18:27)
--- NOTE | 2021-12-17 19:10 | EX.ED.UPPERE ---
HPI History of Present Illness Chief Complaint: Upper Extremity Injury Informant: patient Narrative Narrative: Worsening right upper extremity pain today. She is right-hand dominant. Been dealing with symptoms for the past 4 months. She seen her PCP she was referred to spine and seen Dr. Gordillo, she currently on gabapentin 300 mg 3 times daily. She is for through physical therapy. She works through the drive-through. Pain worsened today. She has been on steroids in the past with no relief. She denies gastric ulcers or kidney injury history. States pain shoots down her arm to her thumb. She states this diagnosed clinically and states only had x-rays. She has an upcoming EMG. Prior similar symptoms: Yes [facility] Medical History Abscess Anxiety Rectal vaginal fistula Smoker Thyroid activity decreased Home Medications cyclobenzaprine 10 mg tablet 10 mg PO BID PRN muscle spasm #10 tabs 10/20/21 [Rx Last Taken Unknown] hydrocodone-acetaminophen 5-325mg 5mg-325mg 1 tab PO Q6H PRN pain 3 days #10 tabs 10/20/21 [Rx Last Taken Unknown] levothyroxine 50 mcg tablet 50 mcg PO DAILY 10/20/21 [History Last Taken Unknown] metoprolol succinate 25 mg tablet,extended release 24 hr 25 mg PO DAILY 10/20/21 [History Last Taken Unknown] naproxen 500 mg tablet (Naprosyn) 500 mg PO BID PRN pain #20 tabs 10/20/21 [Rx Last Taken Unknown] omeprazole 40 mg capsule,delayed release 40 mg PO DAILY 10/20/21 [History Last Taken Unknown] prednisone 10 mg tablet See Taper PO DAILY #63 tabs 10/20/21 [Rx Last Taken Unknown] quetiapine 50 mg tablet 50 mg PO QHS 10/20/21 [History Last Taken Unknown] topiramate 100 mg tablet 100 mg PO BID 10/20/21 [History Last Taken Unknown] ibuprofen 600 mg tablet 600 mg PO 4X/DAY PRN Pain Or Fever #20 tabs 12/17/21 [Rx Last Taken Unknown] oxycodone-acetaminophen 5 mg-325 mg tablet (Percocet) 1 tab PO Q6H PRN pain 3 days #12 tabs 12/17/21 [Rx Last Taken Unknown] Allergy/AdvReac Type Severity Reaction Status Date / Time duloxetine [From Cymbalta] AdvReac Swelling Verified 12/17/21 17:46 Family History Other Diabetes Heart disease Hypertension Surgical History H/O arthroscopic knee surgery H/O dilation and curettage H/O: hysterectomy Social History Smoking Status: Current every day smoker tobacco type: cigarettes ROS ROS ED Constitutional Constitutional ED: Denies chills, fever(s) or sweats Eyes Eyes: Denies change in vision ENT ENT ED: Denies dysphagia or sore throat Cardiovascular Cardiovascular: Denies chest pain, leg edema, palpitations or racing heartbeat Respiratory/Chest Respiratory/Chest: Denies cough, dyspnea or dyspnea on exertion Gastrointestinal Gastrointestinal: Denies abdominal pain, diarrhea, nausea or vomiting Genitourinary Genitourinary ED: Denies dysuria, hematuria or urinary frequency Musculoskeletal Musculoskeletal: Denies back pain, extremity pain or neck pain Integumentary Denies rash or wounds Neurologic Neurologic: Reports other Details: Radicular right arm pain ; Denies headache(s), paresthesias or weakness EXAM Physical Exam Const Vital Signs: 12/17/21 17:46 Temperature 96.9 F L Temperature Source Temporal Pulse Rate 84 Respiratory Rate 12 Blood Pressure 144/103 H Blood Pressure Mean 116 Pulse Ox 98 Oxygen Delivery Method Room Air Positive well nourished and well developed General Appearance ED: well developed and NAD HEENT Reports moist mucous membranes normocephalic and atraumatic Eyes PERRL, EOMs intact bilaterally and conjunctivae normal General Eye ED: Yes normal appearance of both eyes Neck no lymphadenopathy and supple Neck Narrative: Spurling's test negative. She states improved pain with extension to the right worsening with flexion to the left. General: Negative for tenderness Chest Wall Chest: Negative for tenderness Resp normal respiratory effort and normal air movement Effort and Inspection: symmetric chest movement; Negative for respiratory distress Cardio regular rate, regular rhythm and no murmurs Peripheral Pulses: pulses 2+ throughout GI normal to inspection, nondistended, normoactive bowel sounds and non-tender Palpation: Negative for guarding or rebound tenderness present Back/Spine no CVA tenderness and no thoracic nor lumbar tenderness Extremity normal to inspection General Extremety ED: Negative for edema or tenderness General Extremity: Negative for edema Neuro oriented x3 and no sensory deficits noted Sensorium / Orientation: awake and alert Skin no rashes or lesions noted and no wounds MDM MDM MDM Narrative Medical decision making narrative: Patient history concerning for cervical radiculopathy of the right C6. Currently on gabapentin. She reported no relief with steroids in the past. She given Toradol and oxycodone in the ED. Short prescription for pain control. She is given follow-up with pain management as an outpatient for options for interventions for her symptoms. All questions were answered. Discharge Plan Triage Chief Complaint: Upper Extremity Injury ED Provider: Oli Parsons Dx/Rx/DC Orders Clinical Impression: Right cervical radiculopathy, Arm pain, right Instructions: ED Radiculopathy, Cervical Prescriptions: New oxycodone-acetaminophen [Percocet] 5-325 mg tablet 1 tab PO Q6H PRN (Reason: pain) 3 Days Qty: 12 0RF ibuprofen 600 mg tablet 600 mg PO 4X/DAY PRN (Reason: Pain Or Fever) Qty: 20 0RF No Action naproxen [Naprosyn] 500 mg tablet 500 mg PO BID PRN (Reason: pain) Qty: 20 0RF cyclobenzaprine 10 mg tablet 10 mg PO BID PRN (Reason: muscle spasm) Qty: 10 0RF prednisone 10 mg tablet See Taper PO DAILY Qty: 63 0RF Taper: Prednisone Taper 60 mg WITH BREAKFAST for 3 Days and 0 Hour 50 mg WITH BREAKFAST for 3 Days and 0 Hour 40 mg WITH BREAKFAST for 3 Days and 0 Hour 30 mg WITH BREAKFAST for 3 Days and 0 Hour 20 mg WITH BREAKFAST for 3 Days and 0 Hour 10 mg WITH BREAKFAST for 3 Days and 0 Hour hydrocodone-acetaminophen 5-325 mg tablet 1 tab PO Q6H PRN (Reason: pain) 3 Days Qty: 10 0RF omeprazole 40 mg capsule,delayed release(DR/EC) 40 mg PO DAILY levothyroxine 50 mcg tablet 50 mcg PO DAILY metoprolol succinate 25 mg tablet extended release 24 hr 25 mg PO DAILY topiramate 100 mg tablet 100 mg PO BID quetiapine 50 mg tablet 50 mg PO QHS Primary Care Provider: Aaron Brand BOATBUILDER SUPERVISOR Referrals: Krishna Koch MD [Med Staff - Active Staff] - 3-5 Days Aaron Brand BOATBUILDER SUPERVISOR, BOATBUILDER SUPERVISOR-C [Primary Care Provider] - Activity Restrictions/Additional Instructions: You have a right C6 cervical radiculopathy. Continue your gabapentin. Take medications as prescribed. Follow-up as an outpatient. Disposition Disposition: Home, Self Care Discharge Date/Time: 12/17/21 19:23
[2021-12-17 19:22] VITALS: BP 145/84; PULSE 71; RESP 16; O2SAT 97
== END 2021-12-17 19:23 | disposition home or self-care (01) ==
LOC: ED 18:13
PROVIDERS: Emergency Provider Emergency Medicine; PCP Nurse Practitioner Family; Visit Provider Emergency Medicine
DX: M54.12 Radiculopathy, cervical region (principal); M79.601 Pain in right arm; F17.210 Nicotine dependence, cigarettes, uncomplicated
CPT/HCPCS: 96372; 99283